=== PATIENT | male | born 1980 | race Caucasian/White ===

== ENCOUNTER 2016-11-03 21:10 | Emergency (ER) | payer OTHER ==
[~2016-11-03] VITALS: Ht 180.3 cm; Wt 72.6 kg
[2016-11-03 21:13] VITALS: BP 144/89
--- NOTE | 2016-11-03 21:30 | ED UPPER/LOWER EXTREMITY COMPL ---
History of Present Illness General Chief Complaint: Lower Extremity Injury Stated Complaint: L KNEE INJURY Source: patient Exam Limitations: no limitations Allergies Coded Allergies: No Known Allergies (11/03/16) Triage Note: PT TO TRIAGE WITH C/O L KNEE PAIN S/P HIT LEFT KNEE AT 6PM, +SWELLING, PAIN WITH AMBULATION. 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 ICE PACK PROVIDED. Triage Nurses Notes Reviewed? yes HPI: This patient is a 35-year-old male who presented to the emergency department today for evaluation of left knee pain. He reported that he was outside when his son ran into the side of his right knee. Patient reported that he felt a pop. He reported that it is difficult for him to walk on it. The pain is worse with ambulation and movement. Pain gets up and 9 out of 10 and is nonradiating. It is throbbing and sharp. The patient reported that he feels like, "the top of my knee is sliding over the bottom of my knee." The patient is refusing any medication for pain here in the emergency department. He denied any numbness or tingling in his extremities. (MIROSLAVA CARRERA PA-C) Vital Signs & Intake/Output Vital Signs & Intake/Output Vital Signs Date Time Temp Pulse Resp B/P Pulse O2 O2 Flow FiO2 Ox Delivery Rate 11/03 2113 98.7 83 18 144/89 98 Room Air ED Intake and Output 11/04 0000 11/03 1200 Intake Total Output Total Balance Patient 160 lb Weight Past History Travel History Traveled to [place] past 21 day No Medical History Any Pertinent Medical History? see below for history Surgical History Surgical History: non-contributory Psychosocial History What is your primary language [place] Tobacco Use: Never used Family History Hx Contributory? No (MIROSLAVA CARRERA PA-C) Review of Systems Review of Systems Constitutional: Reports: no symptoms. EENTM: Reports: no symptoms. Respiratory: Reports: no symptoms. Cardiovascular: Reports: no symptoms. Gastrointestinal/Abdominal: Reports: no symptoms. Musculoskeletal: Reports: see HPI. Skin: Reports: no symptoms. Neurological/Psychological: Reports: no symptoms. All Other Systems: Reviewed and Negative (MIROSLAVA CARRERA PA-C) Physical Exam Physical Exam General Appearance: well developed/nourished, no apparent distress, alert, awake Comments: Well-developed well-nourished person in no acute distress HEENT: Head normocephalic, moist mucous membranes Neck: Supple, no lymphadenopathy Back: Antalgic gait Respiratory: No respiratory distress. Speaking in full sentences Left knee: Mild effusion noted to the medial aspect of the knee with no overlying erythema or ecchymosis. No bony or muscular deformities appreciated. Range of motion at the knee limited due to pain. Tenderness to palpation over the medial aspect of the knee. Negative valgus and varus stress test. Minimal laxity noted on anterior drawer test. Neuro: Alert and oriented x3 Psych: Mood affect normal, normal memory normal judgment. Skin: Warm and dry, no rash on exposed skin (MIROSLAVA CARRERA PA-C) Progress Differential Diagnosis: compartment syndrome, contusion, dislocation, fracture, sprain, tendon injury Plan of Care: Orders Procedure Date/time Status Durable Medical Equipment 11/04 2215 Active Diagnostic Imaging: Viewed by Me: Radiology Read. Discussed w/RAD: Radiology Read. Radiology Impression: PATIENT: JAMIN PRATT PRESENT AGE: 35 PATIENT ACCOUNT NO: [id number] : 79 LOCATION: [facility] ORDERING PHYSICIAN: POLLY GUEVARA MD SERVICE DATE: 11/03/16 EXAM TYPE: RAD - XRY-KNEE COMPLETE LEFT EXAMINATION: XR KNEE, LEFT CLINICAL INFORMATION: Left knee pain. COMPARISON: None. TECHNIQUE: Four views of the left knee. FINDINGS: No fracture or dislocation. No significant cartilage space narrowing. Minimal patellar marginal osteophyte formation. Trace knee joint effusion. IMPRESSION: No acute osseous abnormalities. Trace knee joint effusion. DICTATED BY: JAMIN FRAIRE MD DATE/TIME DICTATED:11/03/162203 [employer] SALESPERSON:DESTINI DATE/TIME TRANSCRIBED:11/03/162203 CONFIDENTIAL, DO NOT COPY WITHOUT APPROPRIATE AUTHORIZATION. <Electronically signed in Other Vendor System> SIGNED BY: JAMIN FRAIRE MD 11/03/162209 (MIROSLAVA CARRERA PA-C) Departure Departure Disposition: HOME OR SELF CARE Condition: Stable Clinical Impression Primary Impression: Knee injury Qualifiers: Encounter type: initial encounter Laterality: left Qualified Code: S89.92XA - Unspecified injury of left lower leg, initial encounter Referrals: MIGUEL FERNANDES,SUNNY BUNCH MD,KAMLESH Israel (PCP/Family) Additional Instructions: Please use the knee immobilizer provided to here in the emergency department as well as the crutches to remain nonweightbearing until you follow up with the orthopedic physician whose information has been provided to you in this packet; please call their office tomorrow to schedule an appointment. Here in the emergency department, we were able to rule out any fractures or dislocations of your knee; however, you may need an MRI to rule out a ligamentous injury or tendon injury. Please return to the emergency department for any worsening symptoms or concerns. Elevate your knee when possible and apply ice to the affected area as needed. [id number] Motrin for pain and inflammation. Departure Forms: Customer Survey General Discharge Information (MIROSLAVA CARRERA PA-C) PA/[employer] FORMER Co-Sign Statement Statement: ED Attending supervision documentation- [] I saw and evaluated the patient. I have also reviewed all the pertinent lab results and diagnostic results. I agree with the findings and the plan of care as documented in the PA's/[employer] FORMER's documentation. [x] I have reviewed the ED Record and agree with the PA's/[employer] FORMER's documentation. [] Additions or exceptions (if any) to the PAs/[employer]OM[employer] FORMER's note and plan are summarized below: [] (ISMAEL FERNANDES,POLLY Chambers)
--- NOTE | 2016-11-03 22:10 | RADIOLOGY REPORT ---
EXAMINATION: XR KNEE, LEFT CLINICAL INFORMATION: Left knee pain. COMPARISON: None. TECHNIQUE: Four views of the left knee. FINDINGS: No fracture or dislocation. No significant cartilage space narrowing. Minimal patellar marginal osteophyte formation. Trace knee joint effusion. IMPRESSION: No acute osseous abnormalities. Trace knee joint effusion.
== END 2016-11-03 22:27 ==
LOC: ERH 21:10
DX: S89.92XA Unspecified injury of left lower leg, initial encounter (principal); W51.XXXA Accidental striking against or bumped into by another person, initial encounter; Y92.9 Unspecified place or not applicable; Y93.9 Activity, unspecified
CPT/HCPCS: 73562-LT